=== PATIENT | female | born 1975 | race Caucasian/White ===

== ENCOUNTER → 2016-07-02 | Outpatient (CLI) | payer OTHER | LOC: WI 12:51 | PROVIDERS: ATTEND Nurse Practitioner Family | DX: Z12.31 Encounter for screening mammogram for malignant neoplasm of breast (principal) | CPT/HCPCS: 77067; G0202 ==

== ENCOUNTER 2017-03-27 21:29 | Emergency (ER) | payer OTHER ==
[2017-03-27] MEDS ORDERED: NORMAL SALINE 1000 ML 1,000 ML IV ONE (22:04)
[2017-03-28] MEDS ORDERED: METOCLOPRAMIDE HCL INJ/PF 10 MG/2 ML SDV IV ONE
[2017-03-28] MEDS ORDERED: DIPHENHYDRAMINE HCL 50 MG/ML VIAL IV ONE
[2017-03-28] MEDS ORDERED: DEXAMETHASONE SOD PHOS INJ 10 MG/1 ML VIAL IV ONE (00:01)
[2017-03-28] MEDS ORDERED: HYDROMORPHONE HCL INJ/PF 2 MG/ML AMPULE IV ONE (01:41)
--- NOTE | 2017-03-28 02:44 | ER Document Report ---
ED General - General Chief Complaint: Headache Stated Complaint: HEADACHE Time Seen by Provider: 03/27/17 23:50 Notes: Patient is a pleasant 42-year-old female with a history of Chiari malformation. She has had 2 surgeries. She said surgeries in 2011 in [place]. He went back to back decompression surgeries. The second surgery occurred because the first 1 had some palpitations. She has had no comp occasions since then. Occasionally she will get headaches feel unwell. She says that these usually occur when there is barometric changes with weather changes as we have had over last 48 hours. She is a headache for last 48 hours. She has had some nausea but no vomiting. She says some dizziness and slight blurred vision. She says this does feel similar to her previous headaches Amita more intense and will not go away this time. She tried BC powders at home. This did not resolve her headache. She therefore came to the ER. No weakness or numbness into extremities. No other complaints at this time. TRAVEL OUTSIDE OF THE [place] IN LAST 30 DAYS: No - Related Data Allergies/Adverse Reactions: amoxicillin [Amoxicillin] Allergy (Verified 03/27/17 21:55) Penicillins Allergy (Verified 03/27/17 21:55) Sulfa (Sulfonamide Antibiotics) Allergy (Verified 03/27/17 21:55) ketorolac tromethamine [From Toradol] Adverse Reaction (Verified 03/27/17 21:55) Past Medical History - Social History Smoking Status: Never Smoker Chew tobacco use (# tins/day): No Frequency of alcohol use: Rare Drug Abuse: None Family History: Reviewed & Not Pertinent Patient has suicidal ideation: No Patient has homicidal ideation: No - Past Medical History Cardiac Medical History: Reports: Hx Hypertension Neurological Medical History: Reports: Hx Migraine Renal/ Medical History: Reports: Hx Kidney Stones - 11. Denies: Hx Peritoneal Dialysis Past Surgical History: Reports: Hx Cholecystectomy - gallbladder surgury x 4, Hx Hysterectomy, Hx Neurologic Surgery - brain surgury( decompression in Apr and June 2011) - Immunizations Hx Diphtheria, Pertussis, Tetanus Vaccination: Yes Review of Systems - Review of Systems Notes: My Normal Review Basic REVIEW OF SYSTEMS: CONSTITUTIONAL : Denies fever, chills, or sweats. Denies recent illness. EENT: Denies eye, ear, throat, or mouth pain or symptoms. Denies nasal or sinus congestion. RESPIRATORY: Denies cough, cold, or chest congestion. Denies shortness of breath, difficulty breathing, or wheezing. GASTROINTESTINAL: Denies abdominal pain. Nausea. SKIN: Denies rash or skin lesions. NEUROLOGICAL: Denies altered mental status or loss of consciousness. Has a headache. Denies weakness or paralysis or loss of use of either side. Denies problems with gait or speech. Denies sensory or motor loss. Slight blurred vision. Some dizziness. ALL OTHER SYSTEMS REVIEWED AND NEGATIVE. Physical Exam - Vital signs Vitals: Temp Pulse Resp BP Pulse Ox 98.5 F 71 16 155/89 H 99 03/27/17 21:59 03/27/17 21:59 03/27/17 21:59 03/27/17 21:59 03/27/17 21:59 - Notes Notes: General Appearance: Well nourished, alert, cooperative, no acute distress, moderate obvious discomfort. Vitals: reviewed, See vital signs table. Head: no swelling or tenderness to the head Eyes: PERRL, EOMI, Conjuctiva clear Mouth: No decreasd moisture Neck: Supple, mild tenderness to palpation of the cervical paraspinal musculature. No swelling to palpation of neck. Lungs: No wheezing, No rales, No rhonci, No accessory muscle use, good air exchange bilaterally. Heart: Normal rate, Regular rythm, No murmur, no rub Extremities: strength 5/5 in all extremities, good pulses in all extremities, no swelling or tenderness in the extremities, no edema. Skin: warm, dry, appropriate color, no rash Neuro: speech clear, oriented x 3, normal affect, responds appropriately to questions. Renal nerves II through XII are intact. Distal sensation intact. Normal gait. Normal Romberg. Patient moves all extremities without difficulty. Extremity strength is equal bilaterally. Distal sensation intact. Course - Re-evaluation Re-evalutation: 03/28/17 02:39 After the dose of the Dilaudid patient's headache is completely resolved. All her symptoms have resolved. She looks well. She is fully neurologically intact. She said she will call Dr. Casas, her neurologist, tomorrow follow- up with him. I encouraged her return to ER immediately if she has recurrence of her symptoms, vomiting, recurrent dizziness or blurred vision, or she feels unwell. Patient agrees with plan will be discharged home. Dictation of this chart was performed using voice recognition software; therefore, there may be some unintended grammatical errors. - Vital Signs Vital signs: Temp Pulse Resp BP Pulse Ox 98.5 F 71 16 155/89 H 99 03/27/17 21:59 03/27/17 21:59 03/27/17 21:59 03/27/17 21:59 03/27/17 21:59 Discharge - Discharge Clinical Impression: Headache Qualifiers: Headache type: unspecified Headache chronicity pattern: acute headache Intractability: not intractable Qualified Code(s): R51 - Headache Condition: Good Disposition: HOME, SELF-CARE Additional Instructions: Please call Dr. Casas's office to follow up in the next 1-2 days. Please return to the ER immediately if you have recurrent pain, feves, vomiting, dizziness, or blurry vision. Forms: Return to Work
[2017-03-28 04:42] VITALS: BP 128/72
== END 2017-03-28 04:42 | disposition home or self-care (01) ==
LOC: ER 21:29
DX: R51 Headache (principal); R11.0 Nausea
CPT/HCPCS: 99283; 96374; 96375; J1200; J2765; J1170; J1100

== ENCOUNTER 2018-09-12 10:24 | Emergency (ER) | payer OTHER ==
[2018-09-12] MEDS ORDERED: MAG HYDROX/AL HYDROX/SIMETH SUSP 30 ML UDCUP PO ONE (10:34)
[2018-09-12] MEDS ORDERED: LIDOCAINE 2% VISCOUS SOLN 20 ML UDCUP PO ONE (10:34)
--- NOTE | 2018-09-12 10:36 | ER Document Report ---
ED Medical Screen (RME) - General Chief Complaint: Nausea/Vomiting Stated Complaint: EPIGASTRIC PAIN Time Seen by Provider: 09/12/18 10:28 Primary Care Provider: MELCHOR DUKES MD [Primary Care Provider] - Follow up as needed Information source: Patient TRAVEL OUTSIDE OF THE [place] IN LAST 30 DAYS: No - HPI Notes: 09/12/18 10:36 Patient is a [] that presents to the emergency department for chief complaint of epigastric pain, nausea vomiting for the last 3 to 5 days. Worse with time, nothing makes better. Decreased eating but is drinking minimally. tried Benadryl without relief. denies any new foods medications or travel. Denies any rashes. Patient did in the last month or so just moved from [place], does not have a primary care provider. Patient has a history of GERD, does take omeprazole daily. Denies any diarrhea. Denies any fevers. Reports chills. History of migraines due to Chiari malformation. ROS: Other than noted above, the 12 point review of systems was reviewed with the patient and were negative, all pertinent findings are included in the HPI. PHYSICAL EXAMINATION: Vital signs reviewed. GENERAL: Well-appearing, well-nourished and in mild distress HEAD: Atraumatic, normocephalic. EYES: Pupils equal round extraocular movements intact, conjunctiva are normal. ENT: Nares patent NECK: Normal range of motion CV: Heart regular rate and rhythm LUNGS: No respiratory distress ABD: Epigastric tenderness on palpation no CVA tenderness bilaterally Musculoskeletal: Normal range of motion NEUROLOGICAL: Normal speech PSYCH: Normal mood, normal affect. MDM: Patient seen and examined for rapid initial assessment. Vital signs reviewed. A comprehensive ED assessment and evaluation of the patient, analysis of test results and completion of the medical decision making process will be conducted by additional ED providers. *Note is created using voice recognition software and may contain spelling, syntax or grammatical errors. - Related Data Allergies/Adverse Reactions: amoxicillin [Amoxicillin] Allergy (Verified 09/12/18 10:25) Penicillins Allergy (Verified 09/12/18 10:25) Sulfa (Sulfonamide Antibiotics) Allergy (Verified 09/12/18 10:25) ketorolac tromethamine [From Toradol] Adverse Reaction (Verified 09/12/18 10:25) Past Medical History - Past Medical History Cardiac Medical History: Reports: Hx Hypertension Neurological Medical History: Reports: Hx Migraine Renal/ Medical History: Reports: Hx Kidney Stones - 11. Denies: Hx Peritoneal Dialysis Past Surgical History: Reports: Hx Cholecystectomy - gallbladder surgury x 4, Hx Hysterectomy, Hx Neurologic Surgery - brain surgury( decompression in Apr and June 2011) - Immunizations Hx Diphtheria, Pertussis, Tetanus Vaccination: Yes Doctor's Discharge - Discharge Referrals: MELCHOR DUKES MD [Primary Care Provider] - Follow up as needed
[2018-09-12] MEDS ORDERED: NORMAL SALINE 500 ML IV PRN (10:38)
--- NOTE | 2018-09-12 11:05 | RADIOLOGY REPORT (SQ) ---
EXAM DESCRIPTION: CHEST SINGLE VIEW COMPLETED DATE/TIME: 09/12/2018 10:51 am REASON FOR STUDY: epigastric pain COMPARISON: None. EXAM PARAMETERS: NUMBER OF VIEWS: One view. TECHNIQUE: Single frontal radiographic view of the chest acquired. RADIATION DOSE: NA LIMITATIONS: None. FINDINGS: LUNGS AND PLEURA: No opacities, masses or pneumothorax. No pleural effusion. MEDIASTINUM AND HILAR STRUCTURES: No masses. Contour normal. HEART AND VASCULAR STRUCTURES: Heart normal in size. Normal vasculature. BONES: No acute findings. HARDWARE: Clips right upper quadrant post cholecystectomy OTHER: No other significant finding. IMPRESSION: NO ACUTE RADIOGRAPHIC FINDING IN THE CHEST. TECHNICAL DOCUMENTATION: JOB ID: [id number] [employer]- All Rights Reserved Reading location - IP/workstation name: [email or web address]
[2018-09-12] MEDS ORDERED: ONDANSETRON HCL INJ/PF 4 MG/2 ML SDV IV ONE (11:17)
[2018-09-12] MEDS ORDERED: FAMOTIDINE INJ/PF 20 MG/2 ML SDV IV ONE (11:17)
--- NOTE | 2018-09-12 11:23 | ER Document Report ---
ED General - General Chief Complaint: Nausea/Vomiting Stated Complaint: VOMITING Time Seen by Provider: 09/12/18 10:28 Primary Care Provider: EILEEN GELLER MD [ACTIVE STAFF] - Follow up in 3-5 days MELCHOR DUKES MD [Primary Care Provider] - Follow up tomorrow TRAVEL OUTSIDE OF THE [place] IN LAST 30 DAYS: No - HPI Notes: Patient is a 43-year-old female that presents to the emergency department for chief complaint of epigastric abdominal pain. Patient reports constant epigastric pain for the last 3 to 4 days. She states it is sharp in nature nonradiating. She states she is unable to eat food because she feels nauseous and vomits. She is trying to keep down water. She d enies associated fevers constipation and diarrhea. Patient has history of cholecystectomy and appendectomy as well as pancreatitis. Patient has not taken [id number] medication for her symptoms. She does take Mobic daily. Past Medical History: Chiari malformation, migraines, GERD Past Surgical History: Appendectomy, cholecystectomy, multiple bladder slings Social History: Reviewed in chart Family History: Reviewed and noncontributory for presenting illness Allergies: Reviewed, see documented allergy list. REVIEW OF SYSTEMS: CONSTITUTIONAL : No fever No chills No diaphoresis No recent illness EENT: No vision changes No congestion No sore throat CARDIOVASCULAR: No chest pain No palpitations RESPIRATORY: No shortness of breath No cough No difficulty breathing GASTROINTESTINAL: abdominal pain nausea vomiting No diarrhea GENITOURINARY: No dysuria No hematuria No difficulty urinating MUSCULOSKELETAL: No back pain No leg pain No arm pain SKIN: No rashes No lesions LYMPHATIC: No swollen, enlarged glands. NEUROLOGICAL: No lightheadedness No headache No weakness No paresthesias PSYCHIATRIC: No anxiety No depression PHYSICAL EXAMINATION: Vital signs reviewed, nursing noted reviewed. GENERAL: Appears uncomfortable, well-nourished and in no acute distress. HEAD: Atraumatic, normocephalic. EYES: Eyes appear normal, extraocular movements intact, sclera anicteric, conjunctiva are normal. ENT: nares patent, oropharynx clear without exudates. Moist mucous membranes. NECK: Normal range of motion, supple without lymphadenopathy LUNGS: Breath sounds clear to auscultation bilaterally and equal. No wheezes rales or rhonchi. HEART: Tachycardic rate and regular rhythm without murmurs ABDOMEN: Soft, epigastric tenderness, normoactive bowel sounds. No rebound, guarding, or rigidity. No masses appreciated. EXTREMITIES: Nontender, good range of motion, no pitting or edema. NEUROLOGICAL: No focal neurological deficits. Moves all extremities spontaneously Motor and sensory grossly intact on exam. PSYCH: Anxious mood, normal affect. SKIN: Warm, Dry, normal turgor, no rashes or lesions noted on exposed skin - Related Data Allergies/Adverse Reactions: amoxicillin [Amoxicillin] Allergy (Verified 09/12/18 10:25) Penicillins Allergy (Verified 09/12/18 10:25) Sulfa (Sulfonamide Antibiotics) Allergy (Verified 09/12/18 10:25) ketorolac tromethamine [From Toradol] Adverse Reaction (Verified 09/12/18 10:25) Past Medical History - General Information source: Patient - Social History Smoking Status: Current Every Day Smoker Chew tobacco use (# tins/day): No Frequency of alcohol use: Occasional Drug Abuse: Marijuana Family History: Reviewed & Not Pertinent Patient has suicidal ideation: No Patient has homicidal ideation: No - Past Medical History Cardiac Medical History: Reports: Hx Hypertension Neurological Medical History: Reports: Hx Migraine Renal/ Medical History: Reports: Hx Kidney Stones - 11. Denies: Hx Peritoneal Dialysis GI Medical History: Reports: Hx Gastroesophageal Reflux Disease Past Surgical History: Reports: Hx Appendectomy, Hx Cholecystectomy - gallbladder surgury x 4, Hx Hysterectomy, Hx Neurologic Surgery - brain surgury( decompression in Apr and June 2011) - Immunizations Hx Diphtheria, Pertussis, Tetanus Vaccination: Yes Physical Exam - Vital signs Vitals: Temp Pulse Resp BP Pulse Ox 97.6 F 118 H 20 128/90 H 97 09/12/18 10:28 09/12/18 10:28 09/12/18 10:28 09/12/18 10:28 09/12/18 10:28 Course - Re-evaluation Re-evalutation: 09/12/18 11:22 Vitals reviewed. Nursing notes reviewed. Patient does not appear uncomfortable and is mildly tachycardic. She was given GI cocktail, Pepcid, Zofran, and IV fluids for symptomatic management. Patient has tenderness in her epigastrium and blood work will be obtained to evaluate for possible acute pancreatitis. Patient has had a cholecystectomy in the past. She has no right upper quadrant tenderness to necessitate further imaging at this point. 09/12/18 13:38 Patient's lab work shows a normal lipase. She does have a slight elevation of LFTs which is likely reactive from vomiting. Patient has been taking NSAIDs daily and I suspect gastritis versus gastric ulcer. There is no free air on upright chest x-ray to suggest perforation. Patient will be referred to GI for follow-up and EGD. She was counseled on stopping NSAIDs. She will be given a prescription for sucralfate and will continue taking her omeprazole. Laboratory 09/12/18 09/12/18 12:39 12:39 WBC 7.6 RBC 4.11 Hgb 13.5 Hct 40.4 MCV 98 H MCH 32.9 MCHC 33.5 RDW 16.3 H Plt Count 163 Seg Neutrophils % 81.1 H Lymphocytes % 13.3 Monocytes % 4.8 Eosinophils % 0.2 Basophils % 0.6 Absolute Neutrophils 6.2 Absolute Lymphocytes 1.0 Absolute Monocytes 0.4 Absolute Eosinophils 0.0 Absolute Basophils 0.0 Sodium 141.1 Potassium 3.7 Chloride 99 Carbon Dioxide 26 Anion Gap 16 BUN 10 Creatinine 0.74 Est GFR ( Amer) > 60 Est GFR (Non-Af Amer) > 60 Glucose 142 H Calcium 10.1 Total Bilirubin 1.0 Direct Bilirubin 0.7 H Neonat Total Bilirubin Not Reportable Neonat Direct Bilirubin Not Reportable Neonat Indirect Bili Not Reportable AST 106 H ALT 71 H Alkaline Phosphatase 151 H Total Protein 8.2 Albumin 5.0 Lipase 247.8 Chest X-Ray 09/12/18 10:34 IMPRESSION: NO ACUTE RADIOGRAPHIC FINDING IN THE CHEST. - Vital Signs Vital signs: Temp Pulse Resp BP Pulse Ox 97.6 F 118 H 20 128/90 H 97 09/12/18 10:28 09/12/18 10:28 09/12/18 10:28 09/12/18 10:28 09/12/18 10:28 - Laboratory Result Diagrams: 09/12/18 12:39 09/12/18 12:39 Laboratory results interpreted by me: 09/12/18 09/12/18 09/12/18 12:39 12:39 13:25 MCV 98 H RDW 16.3 H Seg Neutrophils % 81.1 H Glucose 142 H Direct Bilirubin 0.7 H AST 106 H ALT 71 H Alkaline Phosphatase 151 H Urine Protein 100 H Urine Ketones TRACE H Discharge - Discharge Clinical Impression: Epigastric abdominal pain Condition: Stable Disposition: HOME, SELF-CARE Instructions: Abdominal Pain ([facility]) Additional Instructions: Please return to the emergency department if you have any worsening, or concern of your symptoms. Please return to the emergency department if you develop chest pain, difficulty breathing, severe abdominal pain, or ongoing vomiting. Please follow-up with your primary care physician in 2-3 days and any other recommended physicians. If prescribed, take all medications as directed. If you have any questions or concerns do not hesitate to return the emergency department for evaluation. Stop taking NSAIDs including Mobic Take Tylenol as needed for pain Prescriptions: Promethazine HCl [Phenergan 25 mg Supp.rect] 1 supp [place] Q6H PRN #12 supp.rect PRN Reason: nausea Sucralfate [Carafate 1 gm Tablet] 1 gm PO ACHS #30 tablet Referrals: MELCHOR DUKES MD [Primary Care Provider] - Follow up tomorrow EILEEN GELLER MD [ACTIVE STAFF] - Follow up in 3-5 days
[2018-09-12] MEDS ORDERED: SUCRALFATE 1 GM TABLET PO ONE (13:01)
[2018-09-12 13:07] LABS: ABSOLUTE MONOCYTES (AUTO) 0.4 10^3/uL (0.1-1.4); ABSOLUTE NEUT (AUTO) 6.2 10^3/uL (1.7-8.2); BASOPHILS % (AUTO) 0.6 % (0-2); EOSINOPHILS % (AUTO) 0.2 % (0-6); HEMATOCRIT 40.4 % (36.0-47.0); HEMOGLOBIN 13.5 g/dL (12.0-15.5); LYMPHOCYTES % (AUTO) 13.3 % (13-45); MEAN CORPUSCULAR HEMOGLOBIN 32.9 pg (27.0-33.4); MEAN CORPUSCULAR HGB CONC 33.5 g/dL (32.0-36.0); MEAN CORPUSCULAR VOLUME 98 fl (80-97); MONOCYTES % (AUTO) 4.8 % (3-13); PLATELET COUNT 163 10^3/uL (150-450); RED BLOOD COUNT 4.11 10^6/uL (3.72-5.28); RED CELL DISTRIBUTION WIDTH 16.3 % (11.5-14.0); SEGMENTED NEUTROPHILS % (AUTO) 81.1 % (42-78); TOTAL CELLS COUNTED % (AUTO) 100 %; WHITE BLOOD COUNT 7.6 10^3/uL (4.0-10.5)
[2018-09-12 13:33] LABS: ALANINE AMINOTRANSFERASE 71 U/L (9-52); ALKALINE PHOSPHATASE 151 U/L (38-126); ANION GAP 16 (5-19); ASPARTATE AMINO TRANSFERASE 106 U/L (14-36); BILIRUBIN,DIRECT 0.7 mg/dL (0.0-0.4); BLOOD UREA NITROGEN 10 mg/dL (7-20); CALCIUM 10.1 mg/dL (8.4-10.2); CARBON DIOXIDE 26 mmol/L (22-30); CHLORIDE 99 mmol/L (98-107); GLUCOSE 142 mg/dL (75-110); LIPASE 247.8 U/L (23-300); POTASSIUM 3.7 mmol/L (3.6-5.0); SODIUM 141.1 mmol/L (137-145); TOTAL PROTEIN 8.2 g/dL (6.3-8.2)
[2018-09-12 13:53] LABS: APPEARANCE,URINE SLIGHTLY-CLOUDY; BILIRUBIN,URINE NEGATIVE (NEGATIVE); COLOR,URINE AMBER; GLUCOSE, URINE NEGATIVE (NEGATIVE); KETONES,URINE TRACE mg/dL (NEGATIVE); LEUKOCYTE ESTERASE,URINE NEGATIVE (NEGATIVE); NITRITE,URINE NEGATIVE (NEGATIVE); PROTEIN,URINE 100 mg/dL (NEGATIVE); URINE SPECIFIC GRAVITY 1.027; UROBILINOGEN,URINE NEGATIVE mg/dL (<2.0)
[2018-09-12 14:08] VITALS: BP 131/89
[2018-09-12 14:14] LABS: URINE AMPHETAMINES SCREEN NEGATIVE; URINE BARBITURATES SCREEN NEGATIVE; URINE BENZODIAZEPINES SCREEN NEGATIVE; URINE COCAINE SCREEN NEGATIVE; URINE MARIJUANA (THC) SCREEN UNCONFIRMED POSITIVE; URINE METHADONE SCREEN NEGATIVE; URINE PHENCYCLIDINE SCREEN NEGATIVE
== END 2018-09-12 14:33 | disposition home or self-care (01) ==
LOC: ER 10:24
DX: R10.13 Epigastric pain (principal); R10.816 Epigastric abdominal tenderness; R11.2 Nausea with vomiting, unspecified; R79.89 Other specified abnormal findings of blood chemistry; R00.0 Tachycardia, unspecified; F17.200 Nicotine dependence, unspecified, uncomplicated; Z79.1 Long term (current) use of non-steroidal anti-inflammatories (NSAID); Z90.49 Acquired absence of other specified parts of digestive tract; Z87.19 Personal history of other diseases of the digestive system; Z88.0 Allergy status to penicillin; Z88.2 Allergy status to sulfonamides; Z87.442 Personal history of urinary calculi
CPT/HCPCS: 99283; 96361; 96374; 96375; 36415; 83690; 85025; 81025; 80053; 81001; 80307; 71045; J3490; J2405; J7040; S0028